=== PATIENT | female | born 1990 | race Caucasian/White ===

== ENCOUNTER 2016-10-24 01:13 | Emergency (ER) | payer OTHER, BC ==
[2016-10-24 01:20] VITALS: BP 118/58
[2016-10-24] MEDS ORDERED: GI Cocktail Oral Solution 30 ML PO ONE (01:34)
[2016-10-24 02:06] LABS: CHLORIDE,CL 106 mmol/L (101-111); SODIUM,NA 138 mmol/L (135-145)
--- NOTE | 2016-10-24 02:11 | EDM.PDOC ---
ED HISTORY OF PRESENT ILLNESS - General Chief Complaint: Chest Pain Stated Complaint: CHEST PAIN Time Seen by Provider: 10/24/16 01:20 Source of Information: Reports: Patient History Limitations: Reports: No limitations - History of Present Illness INITIAL COMMENTS - FREE TEXT/NARRATIVE: c/o anterior chest /epigastric pain productive cough green phlegm, sx started yesterday with scratchy throat and ears. No fever. Severity: moderate Location, General: Reports: chest - Related Data Allergies/ADRs: Allergies Allergy/AdvReac Type Severity Reaction Status Date / Time amoxicillin [Amoxicillin] Allergy Rash Verified 10/24/16 01:20 levofloxacin [From Levaquin] Allergy Itching Verified 10/24/16 01:20 Penicillins Allergy Rash Verified 10/24/16 01:20 Home Meds: Home Meds Pnv with Ca,No.72/Iron/Fa [ Plus Tablet] 1 each PO DAILY 08/25/14 [ History] Ibuprofen [IJD: Ibuprofen] 800 mg PO Q8H PRN #30 tablet 01/17/16 [Rx] Codeine/Butalbital/ASA/Caffein [Ascomp with Codeine] 1 each PO TID PRN 10/24/16 [History] Past Medical History [employer]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: , Spontaneous Endocrine/Metabolic History: Reports: Vitamin D deficiency Hematologic History: Reports: Anemia - Past Surgical History GI Surgical History: Reports: Cholecystectomy, Colonoscopy Female Surgical History: Reports: D&C Musculoskeletal Surgical History: Reports: Shoulder surgery Social & Family History - Family History Family Medical History: Noncontributory - Tobacco Use Smoking Status *Q: Never Smoker Years of Tobacco use: 4 Used Tobacco, but Quit: Yes Month Tobacco Last Used: 2009 Second Hand Smoke Exposure: No - Alcohol Use Days Per Week of Alcohol Use: 2 Number of Drinks Per Day: 0 Total Drinks Per Week: 0 - Recreational Drug Use Recreational Drug Use: No Drug Use in Last 12 Months: No ED ROS GENERAL - Review of Systems Review Of Systems: ROS reveals no pertinent complaints other than HPI. ED EXAM, GENERAL - Physical Exam Exam: See Below Exam Limited By: No limitations General Appearance: alert, mild distress Eye Exam: bilateral eye: EOMI Ears: normal external exam, normal canal Nose: normal inspection Throat/Mouth: Normal inspection Head: atraumatic, normocephalic Neck: normal inspection Respiratory/Chest: no respiratory distress, lungs clear, decreased breath sounds (bilateral bases) Cardiovascular: normal peripheral pulses, regular rate, rhythm GI/Abdominal: normal bowel sounds, tender (epigastric) Back Exam: normal inspection, full range of motion Extremities: normal inspection Neurological: alert, oriented Psychiatric: normal affect Skin Exam: Warm, Dry, Intact, Normal color Course - Vital Signs Last Recorded V/S: Last Vital Signs Temp 98.4 F 10/24/16 01:16 Pulse 104 H 10/24/16 01:16 Resp 22 H 10/24/16 01:16 BP 118/58 L 10/24/16 01:16 Pulse Ox 100 10/24/16 01:16 - Orders/Labs/Meds Orders: Active Orders 24 hr Category Date Time Status CULTURE STREP A CONFIRMATION [] Stat Lab 10/24/16 01:44 Results STREP SCRN A RAPID W CULT CONF [] Stat Lab 10/24/16 01:44 Results Labs: Laboratory Tests 10/24/16 10/24/16 10/24/16 Range/Units 01:40 01:40 01:40 WBC 8.1 (5.0-10.0) 10^3/uL RBC 4.20 (4.2-5.4) 10^6/uL Hgb 12.6 (12.0-16.0) g/dL Hct 37.3 (37.0-47.0) % MCV 88.8 (80-100) fL MCH 30.0 (27.0-34.0) pg MCHC 33.8 (33.0-35.0) g/dL Plt Count 231 (150-450) 10^3/uL Neut % (Auto) 56.9 (42.2-75.2) % Lymph % (Auto) 28.7 (20.5-50.1) % [place] % (Auto) 9.7 H (2-8) % Eos % (Auto) 4.3 H (1.0-3.0) % Baso % (Auto) 0.4 (0.0-1.0) % D-Dimer, Quantitative < 100 (0-400) ng/mL Sodium 138 (135-145) mmol/L Potassium 3.9 (3.6-5.0) mmol/L Chloride 106 (101-111) mmol/L Carbon Dioxide 27.0 (21.0-31.0) mmol/L Anion Gap 8.9 BUN 13 (7-18) mg/dL Creatinine 0.7 (0.6-1.3) mg/dL Est Cr Clr Drug Dosing 112.01 mL/min Estimated GFR (MDRD) > 60 BUN/Creatinine Ratio 18.57 Glucose 97 (74-105) mg/dL Calcium 9.2 (8.4-10.2) mg/dl Total Bilirubin 0.5 (0.2-1.0) mg/dL AST 59 H (10-42) IU/L ALT 32 (10-60) IU/L Alkaline Phosphatase 76 (42-121) IU/L Total Protein 7.2 (6.7-8.2) g/dl Albumin 4.2 (3.2-5.5) g/dl Globulin 3.0 Albumin/Globulin Ratio 1.40 Amylase 45 (28-100) U/L Lipase 22 (22-51) U/L Meds: Medications Discontinued Medications Generic Name Dose Route Start Last Admin Trade Name Kalq PRN Reason Stop Dose Admin Al Hydroxide/Mg Hydroxide 30 ml 10/24/16 01:34 10/24/16 01:37 Gi Cocktail PO 10/24/16 01:35 30 ml ONETIME ONE Administration - Radiology Interpretation Free Text/Narrative:: CXR negative Departure - Departure Time of Disposition: 02:14 Disposition: Home, Self-Care 01 Condition: good Clinical Impression: Bronchitis Instructions: Acute Bronchitis, [id number] Forms: ED Department Discharge Additional Instructions: muccinex or robitussin to loosen cough tylenol for discomfort every 4 hours as needed, not to exceed 3600mg daily from all sources increase fluid intake follow up if symptoms worsen - My Orders Last 24 Hours: My Active Orders 10/24/16 01:44 CULTURE STREP A CONFIRMATION [RM] Stat STREP SCRN A RAPID W CULT CONF [] Stat - Assessment/Plan Last 24 Hours: My Active Orders 10/24/16 01:44 CULTURE STREP A CONFIRMATION [] Stat STREP SCRN A RAPID W CULT CONF [] Stat
== END 2016-10-24 02:30 | disposition home or self-care (01) ==
LOC: DL.ED 01:13
DX: J40 Bronchitis, not specified as acute or chronic (principal); Z98.890 Other specified postprocedural states; Z88.0 Allergy status to penicillin; Z88.1 Allergy status to other antibiotic agents
CPT/HCPCS: 36415; 71020; 80053; 82150; 83690; 85025; 85379; 87081; 87430; 99285; A9270

== ENCOUNTER 2019-07-02 00:27 | Emergency (ER) | payer OTHER, BC ==
[2019-07-02 00:42] VITALS: BP 111/92; PULSE 119
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
[2019-07-02] MEDS ORDERED: Acetaminophen/HYDROcodone 325-10 MG Tab PO ONE (02:53)
== END 2019-07-02 03:05 | disposition home or self-care (01) ==
LOC: DL.ED 00:27
DX: S06.0X1A Concussion with loss of consciousness of 30 minutes or less, initial encounter (principal); S00.83XA Contusion of other part of head, initial encounter; Z88.0 Allergy status to penicillin; Z88.1 Allergy status to other antibiotic agents; Y04.8XXA Assault by other bodily force, initial encounter
CPT/HCPCS: 70450; 70486; 99284; A9270

== ENCOUNTER 2023-11-17 16:31 | Emergency (ER) | payer BC, OTHER ==
[2023-11-17 17:28] VITALS: BP 102/67; PULSE 84
== END 2023-11-17 17:23 | disposition home or self-care (01) ==
LOC: DL.ED 16:31
DX: N61.0 Mastitis without abscess (principal); Z88.0 Allergy status to penicillin; Z88.8 Allergy status to other drugs, medicaments and biological substances; J45.909 Unspecified asthma, uncomplicated; Z90.49 Acquired absence of other specified parts of digestive tract
CPT/HCPCS: 99283